=== PATIENT | female | born 1995 | race Caucasian/White ===

== ENCOUNTER 2022-04-28 10:43 | Emergency (ER) | payer SELFPAY ==
[2022-04-28 10:49] VITALS: BP 131/72; PULSE 124; RESP 18; TEMP 100.1; BMI 27.3
[2022-04-28] MEDS ORDERED: KETOROLAC TROMETHAMINE 30 MG/1 ML VIAL IM ONE (11:36)
[2022-04-28] MEDS ORDERED: KETOROLAC TROMETHAMINE 30 MG/1 ML VIAL ONE (11:37)
== END 2022-04-28 12:29 | disposition home or self-care (01) ==
LOC: JERFT 10:43 → JER 10:43 → JERFT 12:29
PROC: 3E0233Z Introduction of Anti-inflammatory into Muscle, Percutaneous Approach (ICD-10-PCS; principal; 2022-04-28)
DX: R50.9 Fever, unspecified (principal); R05.1 Acute cough; J02.0 Streptococcal pharyngitis
CPT/HCPCS: 0241U-QW; 87651; 99284-25

== ENCOUNTER 2023-07-21 10:39 | Emergency (ER) | payer OTHER ==
[2023-07-21 11:07] VITALS: BP 122/81; PULSE 118; RESP 19; TEMP 100.1; BMI 28.3
[2023-07-21] MEDS ORDERED: ACETAMINOPHEN 500 MG TABLET (FP) ONE (11:29)
[2023-07-21] MEDS ORDERED: DEXAMETHASONE SOD PHOSPHATE 10 MG/1 ML VIAL ONE (11:29)
[2023-07-21] MEDS: ACETAMINOPHEN 500 MG TABLET (FP) PO ONE (11:35)
[2023-07-21] MEDS: DEXAMETHASONE SOD PHOSPHATE 10 MG/1 ML VIAL PO ONE (11:35)
[2023-07-21] MEDS ORDERED: PENICILLIN G BENZATHINE 1,200,000 UNIT/2 ML PFS IM ONE (12:14)
[2023-07-21] MEDS: PENICILLIN G BENZATHINE 1,200,000 UNIT/2 ML PFS IM ONE (12:15)
== END 2023-07-21 12:37 | disposition home or self-care (01) ==
LOC: JERFT 10:39
DX: J02.0 Streptococcal pharyngitis (principal); R50.9 Fever, unspecified; R51.9 Headache, unspecified
CPT/HCPCS: 87651; 99284-25; J1100

== ENCOUNTER 2023-08-23 11:15 | Inpatient (IN) | payer OTHER ==
[2023-08-23] MEDS ORDERED: CEFTRIAXONE 2 GM/100 ML BAG IVPB ONE (12:18)
[2023-08-23] MEDS ORDERED: METOCLOPRAMIDE HCL INJECTION 10 MG/2 ML VIAL ONE (12:41)
[2023-08-23] MEDS ORDERED: ACETAMINOPHEN INJECTION 100 ML IVPB ONE (12:42)
[2023-08-23] MEDS: SODIUM CHLORIDE 0.9% 500 ML INFUS.BAG IV ONE (13:20)
[2023-08-23] MEDS: ACETAMINOPHEN 1000 MG/100 ML BAG IVPB ONE (13:21)
[2023-08-23] MEDS: METOCLOPRAMIDE HCL INJECTION 10 MG/2 ML VIAL IVPB ONE (13:22)
[2023-08-23 14:13] LABS: BASO % 0.7 % (0-2.0); EOS % 0.2 % (0-4.5); HEMATOCRIT 30.2 % (32.4-45.2); HEMOGLOBIN 9.7 GM/dL (10.7-15.3); LYMPH % 8.8 % (8-40); MCH 28.1 pg (25.7-33.7); MCHC 32.2 g/dl (32.0-36.0); MEAN CELL VOLUME 87.5 fl (80-96); MEAN PLT VOLUME 8.4 fl (7.5-11.1); MONO % 6.5 % (3.8-10.2); NEUT % 83.8 % (42.8-82.8); PLATELET COUNT 317 10^3/uL (134-434); RBC 3.45 M/mm3 (3.60-5.2); RDW 14.8 % (11.6-15.6); WHITE BLOOD COUNT 15.1 K/mm3 (4.0-10.0)
[2023-08-23 14:20] LABS: INR 1.22 (0.83-1.09); PROTHROMBIN TIME (PATIENT) 13.9 SEC (9.7-13.0)
[2023-08-23 14:22] LABS: ACTIVATED PTT 33.8 SECONDS (25.2-36.5)
[2023-08-23] MEDS ORDERED: FENTANYL CITRATE/PF 50 MCG/ML VIAL ONE (14:23)
[2023-08-23] MEDS ORDERED: VANCOMYCIN/WATER 1250 MG 1,250 MG/250 ML BAG IVPB ONE (15:08)
[2023-08-23 15:20] LABS: EPI CELLS >36 /uL (0-25.1); HYALINE CASTS 4 /uL (0-3.1); URINE APPEARANCE CLOUDY; URINE BACTERIA 1515 /uL (0-1359); URINE BILIRUBIN NEGATIVE (NEGATIVE); URINE COLOR YELLOW; URINE GLUCOSE (UA) NEGATIVE (NEGATIVE); URINE KETONE TRACE (NEGATIVE); URINE LEUK ESTERASE 1+ (NEGATIVE); URINE NITRITE NEGATIVE (NEGATIVE); URINE PROTEIN NEGATIVE (NEGATIVE); URINE RBC 45 /uL (0-23.9); URINE UROBILINOGEN 0.2 mg/dL (0.2-1.0); URINE WBC 74 /uL (0-25.8)
[2023-08-23 15:22] LABS: HCG,QUALITATIVE URINE Negative
[2023-08-23] MEDS: VANCOMYCIN/WATER 1250 MG 1,250 MG/250 ML BAG IVPB ONE (15:33)
[2023-08-23 15:36] LABS: CHLORIDE 101 mmol/L (98-107); POTASSIUM 3.9 mmol/L (3.5-5.1); SODIUM 133 mmol/L (136-145)
[2023-08-23 15:38] LABS: ANION GAP 6 mmol/L (4-13); CO2 26 mmol/L (21-32); MAGNESIUM 1.9 mg/dL (1.8-2.4)
[2023-08-23 15:39] LABS: GLUCOSE,RANDOM 104 mg/dL (74-106)
[2023-08-23 15:41] LABS: CREATININE 0.9 mg/dL (0.55-1.3); SGPT/ALT 18 U/L (13-61)
[2023-08-23 15:42] LABS: SGOT/AST 11 U/L (15-37)
[2023-08-23 15:43] LABS: BILIRUBIN,TOTAL 0.2 mg/dL (0.2-1); TOT PROT 7.1 g/dl (6.4-8.2)
[2023-08-23 15:44] LABS: ALK PHOS 52 U/L (45-117)
[2023-08-23] MEDS ORDERED: MIDAZOLAM HCL 2 MG/2 ML SINGLE DOSE VIAL ONE (15:46)
[2023-08-23] MEDS ORDERED: LIDOCAINE HCL 1%, 10 MG/ML (20ML VIAL) ONE (15:48)
[2023-08-23 15:50] LABS: BLOOD UREA NITROGEN 2.4 mg/dL (7-18)
[2023-08-23] MEDS: MIDAZOLAM HCL 2 MG/2 ML SINGLE DOSE VIAL IVPUSH ONE (16:17)
[2023-08-23 16:56] LABS: BF GLUCOSE (CSF ONLY) 7 mg/dL (40-70)
[2023-08-23] MEDS ORDERED: DEXAMETHASONE SOD PHOSPHATE 10 MG/1 ML VIAL ONE (17:39)
[2023-08-23] MEDS: DEXAMETHASONE SOD PHOSPHATE 10 MG/1 ML VIAL IVPUSH ONE (17:44)
[2023-08-23 17:45] LABS: CSF APPEARANCE CLOUDY (CLEAR); CSF COLOR COLORLESS (COLORLESS)
[2023-08-23 17:47] LABS: CSF APPEARANCE CLOUDY (CLEAR); CSF COLOR COLORLESS (COLORLESS)
[2023-08-23 17:56] LABS: CSF WBC 2170 mm3 (0-5)
[2023-08-23 17:56] LABS: CSF WBC 2261 mm3 (0-5)
[2023-08-23] MEDS: CEFTRIAXONE 2 GM in DEXTROSE 5%-WATER 100 ML IVPB SCH (23:03)
[2023-08-24] MEDS: ACETAMINOPHEN/CAFFEINE/BUTALBITAL 1 TAB PO ONE (00:06)
[2023-08-24] MEDS: DEXAMETHASONE SOD PHOSPHATE 10 MG/1 ML VIAL IVPUSH SCH (00:09)
[2023-08-24 01:16] VITALS: BMI 27.0
[2023-08-24] MEDS: VANCOMYCIN/WATER FOR INJ (PEG) 1,000 MG/200 ML BAG IVPB SCH (04:16)
[2023-08-24 09:03] LABS: BASO % 0.4 % (0-2.0); HEMATOCRIT 33.2 % (32.4-45.2); HEMOGLOBIN 10.8 GM/dL (10.7-15.3); MCH 28.4 pg (25.7-33.7); MCHC 32.6 g/dl (32.0-36.0); MEAN CELL VOLUME 87.1 fl (80-96); MEAN PLT VOLUME 9.1 fl (7.5-11.1); MONO % 2.4 % (3.8-10.2); NEUT % 87.2 % (42.8-82.8); PLATELET COUNT 345 10^3/uL (134-434); RBC 3.81 M/mm3 (3.60-5.2); RDW 14.4 % (11.6-15.6); WHITE BLOOD COUNT 11.9 K/mm3 (4.0-10.0)
[2023-08-24 09:20] LABS: POTASSIUM 4.1 mmol/L (3.5-5.1)
[2023-08-24 09:22] LABS: CALCIUM 9.3 mg/dL (8.5-10.1)
[2023-08-24 09:23] LABS: BLOOD UREA NITROGEN 4.3 mg/dL (7-18)
[2023-08-24 09:26] LABS: CREATININE 0.6 mg/dL (0.55-1.3)
[2023-08-24] MEDS: HEPARIN NA (PORCINE) 5,000 UNITS/ML 1ML VIAL SQ SCH (15:21)
[2023-08-24] MEDS: SODIUM CHLORIDE 1,000 ML IV SCH (15:22)
[2023-08-24] MEDS: ACYCLOVIR INJECTION 700 MG in DEXTROSE 5%-WATER - 100 ML IVPB SCH (15:28)
[2023-08-24] MEDS: SODIUM CHLORIDE 500 ML IV STA (19:53)
[2023-08-25] MEDS: VANCOMYCIN/WATER FOR INJ (PEG) 1,000 MG/200 ML BAG IVPB SCH (02:32)
[2023-08-25] MEDS: ACETAMINOPHEN 500 MG TABLET (FP) PO PRN (09:37)
[2023-08-25 11:26] LABS: HEMATOCRIT 32.6 % (32.4-45.2); HEMOGLOBIN 10.7 GM/dL (10.7-15.3); MCH 28.3 pg (25.7-33.7); MCHC 32.9 g/dl (32.0-36.0); MEAN PLT VOLUME 9.2 fl (7.5-11.1); PLATELET COUNT 376 10^3/uL (134-434); RBC 3.79 M/mm3 (3.60-5.2); RDW 15.1 % (11.6-15.6); WHITE BLOOD COUNT 21.8 K/mm3 (4.0-10.0)
[2023-08-25 11:46] LABS: POTASSIUM 3.9 mmol/L (3.5-5.1)
[2023-08-25 11:47] LABS: ALBUMIN 3.2 g/dl (3.4-5.0); CALCIUM 9.3 mg/dL (8.5-10.1)
[2023-08-25 11:48] LABS: BLOOD UREA NITROGEN 6.5 mg/dL (7-18); MAGNESIUM 2.2 mg/dL (1.8-2.4)
[2023-08-25 11:50] LABS: CREATININE 0.7 mg/dL (0.55-1.3)
[2023-08-25 11:51] LABS: PHOSPHOROUS 3.9 mg/dL (2.5-4.9)
[2023-08-25 11:52] LABS: BILIRUBIN,TOTAL 0.2 mg/dL (0.2-1)
[2023-08-25 11:53] LABS: TOT PROT 7.9 g/dl (6.4-8.2)
[2023-08-25 12:27] LABS: SYPHILIS W/ RPR CONF NON-REACTIVE (NONREACTIVE)
[2023-08-25 12:56] LABS: HIV INTERPRETATION NEGATIVE (NEGATIVE)
[2023-08-26 08:07] LABS: HEMATOCRIT 30.5 % (32.4-45.2); HEMOGLOBIN 9.8 GM/dL (10.7-15.3); MCH 28.1 pg (25.7-33.7); MCHC 32.3 g/dl (32.0-36.0); MEAN CELL VOLUME 87.1 fl (80-96); MEAN PLT VOLUME 9.3 fl (7.5-11.1); PLATELET COUNT 307 10^3/uL (134-434); RDW 15.2 % (11.6-15.6); WHITE BLOOD COUNT 16.3 K/mm3 (4.0-10.0)
[2023-08-26 08:20] LABS: POTASSIUM 3.7 mmol/L (3.5-5.1)
[2023-08-26 08:22] LABS: CALCIUM 8.6 mg/dL (8.5-10.1)
[2023-08-26 08:23] LABS: ALBUMIN 2.7 g/dl (3.4-5.0); BLOOD UREA NITROGEN 9.1 mg/dL (7-18)
[2023-08-26 08:26] LABS: CREATININE 0.6 mg/dL (0.55-1.3); PHOSPHOROUS 3.2 mg/dL (2.5-4.9)
[2023-08-26 08:27] LABS: BILIRUBIN,TOTAL 0.2 mg/dL (0.2-1); TOT PROT 6.5 g/dl (6.4-8.2)
[2023-08-26] MEDS: LORazepam 2 MG/ML SDV VIAL IVPUSH ONE (15:46)
[2023-08-26 15:54] LABS: BF GLUCOSE (CSF ONLY) 16 mg/dL (40-70)
[2023-08-26 16:49] LABS: CSF APPEARANCE HAZY (CLEAR); CSF COLOR PINK (COLORLESS)
[2023-08-26 16:51] LABS: CSF WBC 406 mm3 (0-5)
[2023-08-27] MEDS: ACETAMINOPHEN 1000 MG/100 ML BAG IVPB ONE (04:37)
[2023-08-27] MEDS: KETOROLAC TROMETHAMINE 10 MG TABLET PO ONE (12:31)
[2023-08-27] MEDS: ACETAMINOPHEN/CAFFEINE/BUTALBITAL 1 TAB PO PRN (21:23)
[2023-08-29] MEDS: MELATONIN 5 MG TABLETS PO ONE (02:51)
[2023-08-29 05:55] VITALS: RESP 18
[2023-08-29 11:28] LABS: BASO % 0.3 % (0-2.0); EOS % 1.6 % (0-4.5); HEMATOCRIT 31.8 % (32.4-45.2); HEMOGLOBIN 10.5 GM/dL (10.7-15.3); LYMPH % 15.2 % (8-40); MCH 28.6 pg (25.7-33.7); MCHC 33.2 g/dl (32.0-36.0); MEAN CELL VOLUME 86.2 fl (80-96); MEAN PLT VOLUME 8.8 fl (7.5-11.1); MONO % 5.9 % (3.8-10.2); PLATELET COUNT 302 10^3/uL (134-434); RBC 3.69 M/mm3 (3.60-5.2); RDW 14.5 % (11.6-15.6); WHITE BLOOD COUNT 14.1 K/mm3 (4.0-10.0)
[2023-08-29 11:47] LABS: POTASSIUM 4.3 mmol/L (3.5-5.1)
[2023-08-29 11:51] LABS: ALBUMIN 2.8 g/dl (3.4-5.0); BLOOD UREA NITROGEN 4.3 mg/dL (7-18)
[2023-08-29 11:54] LABS: CREATININE 0.7 mg/dL (0.55-1.3)
[2023-08-29 11:55] LABS: BILIRUBIN,TOTAL 0.4 mg/dL (0.2-1)
[2023-08-29 11:56] LABS: TOT PROT 6.6 g/dl (6.4-8.2)
[2023-08-29 14:38] VITALS: BP 110/68; PULSE 89; TEMP 98.4
[2023-08-29] MEDS ORDERED: MELATONIN 5 MG TABLETS PO PRN (22:00)
[2023-08-30 14:10] LABS: WEST NILE VIRUS AB SERUM,IGM Negative (Negative)
== END 2023-08-29 15:25 | disposition home or self-care (01) | DRG 51 ==
LOC: JER 11:15 → JERBED 16:55 → J5S 21:50
PROVIDERS: ADMIT Internal Medicine
PROC: 009U3ZZ Drainage of Spinal Canal, Percutaneous Approach (ICD-10-PCS; principal; 2023-08-26)
DX: A87.8 Other viral meningitis (principal); R51.9 Headache, unspecified; J45.909 Unspecified asthma, uncomplicated; M54.2 Cervicalgia; M43.6 Torticollis; H53.149 Visual discomfort, unspecified; R50.9 Fever, unspecified; R01.1 Cardiac murmur, unspecified; J02.0 Streptococcal pharyngitis
CPT/HCPCS: 0241U-QW; 36415; 70450-TC; 70552-TC; 71045-TC-FY; 80048; 80053; 81003; 82945; 83735; 84100; 84157; 84703; 85025; 85027; 85610; 85730; 86480; 86617; 86618; 86780; 86788; 86789; 86790; 86850; 86900; 86901; 87040; 87070; 87086; 87102; 87116; 87205; 87206; 87210; 87252; 87389; 87529; 87536; 87651; 87899; 93306-TC; 99291; J0131; J1100

== ENCOUNTER 2024-09-29 15:04 | Emergency (ER) | payer OTHER ==
[2024-09-29 15:21] VITALS: BP 110/72; PULSE 93; RESP 16; TEMP 98.3; BMI 23.3
[2024-09-29] MEDS ORDERED: ACETAMINOPHEN 325 MG TABLET (FP) ONE (15:43)
[2024-09-29] MEDS: ACETAMINOPHEN 500 MG TABLET (FP) PO ONE (15:46)
[2024-09-29] MEDS ORDERED: KETOROLAC TROMETHAMINE 30 MG/1 ML VIAL ONE (16:17)
[2024-09-29] MEDS: KETOROLAC TROMETHAMINE 30 MG/1 ML VIAL IM ONE (16:21)
== END 2024-09-29 17:29 | disposition home or self-care (01) ==
LOC: JER 15:04
PROC: 3E0233Z Introduction of Anti-inflammatory into Muscle, Percutaneous Approach (ICD-10-PCS; principal; 2024-09-29)
DX: T14.8XXA Other injury of unspecified body region, initial encounter (principal); R51.9 Headache, unspecified; M54.6 Pain in thoracic spine; M54.50 Low back pain, unspecified; W19.XXXA Unspecified fall, initial encounter
CPT/HCPCS: 36415; 71045-TC-FY; 72070-TC-FY; 72100-TC-FY; 99284-25